=== PATIENT | male | born 1960 | race Caucasian/White ===

== ENCOUNTER 2021-09-16 08:48 | Emergency (ER) | payer SELFPAY ==
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
== END 2021-09-16 10:57 | disposition home or self-care (01) ==
LOC: MW.ED 08:48
DX: M54.50 Low back pain, unspecified (principal); M25.512 Pain in left shoulder; V89.2XXA Person injured in unspecified motor-vehicle accident, traffic, initial encounter
CPT/HCPCS: 72131; 72131-26; 73030-26-LT; 73030-LT; 99284-25